=== PATIENT | male | born 1995 | race Two or more races ===

== ENCOUNTER 2017-04-18 18:27 | Emergency (ER) | payer OTHER ==
[~2017-04-18] VITALS: Ht 180.3 cm; Wt 152.9 kg
--- NOTE | 2017-04-18 18:30 | NUR ---
PATIENT PRESENT TO ER C/O POSTERIOR HEAD LACERATION S/P PHONE THROWN AT HIS HEAD. PATIENT IS A/OX 4. BREATHING EVEN AND UNLABORED. NO ACTIVE BLEEDING FROM WOUND SITE. PATIENT'S VITALS STABLE, SAFETY AND COMFORT MEASURES IN PLACE. AWAITING MD ORDERS.
--- NOTE | 2017-04-18 18:42 | NUR ---
PATIENT TAKEN TO CT.
[2017-04-18] MEDS ORDERED: HYDROCODONE/APAP 10/325MG 1 EA TABLET ONE (18:49)
--- NOTE | 2017-04-18 18:50 | NUR ---
PATIENT RETURNED FROM CT SCAN IN STABLE CONDITION.
[2017-04-18] MEDS ORDERED: HYDROCODONE/APAP 10/325MG 1 EA TABLET PO ONE (19:00)
--- NOTE | 2017-04-18 19:00 | NUR ---
PA AT BEDSIDE FOR ZACKARY TO LACERATION
[2017-04-18 19:12] VITALS: BP 112/86
--- NOTE | 2017-04-18 19:20 | NUR ---
Patient discharged to home in stable condition. Written and verbal after care instructions given. Patient verbalizes understanding of instruction.
== END 2017-04-18 19:19 | disposition home or self-care (01) ==
LOC: EDBD 18:29 → ER 18:29
DX: S01.01XA Laceration without foreign body of scalp, initial encounter (principal); Y04.2XXA Assault by strike against or bumped into by another person, initial encounter; Y93.89 Activity, other specified; Y92.89 Other specified places as the place of occurrence of the external cause; Y99.9 Unspecified external cause status
CPT/HCPCS: 12002; 70450; 99284; A4606; A6402; Z7610